=== PATIENT | male | born 1950 | race Caucasian/White ===

== ENCOUNTER 2016-07-13 12:00 | Inpatient (IN) | payer BC ==
--- NOTE | ~2016-07-13 | HP ---
History And Physical [id number] [place]. [address] NAME: LEIDY HARDY : 54 STATUS : ADM IN [facility]#: [id number] AGE: 66 ADM/REG DATE : 07/13/16 MR#: [id number] REPORT SERV DATE: 07/13/16 DICTATED BY: KISHA GUERRERO DATE: 07/13/16 REPORT STATUS : Draft TRANSCRIBED BY: MODL DATE: 07/13/16 DATE OF ADMISSION: 07/13/2016 HISTORY OF PRESENT ILLNESS: The patient is a 66-year-old male with a history of diabetes type 2, hyperlipidemia, and obstructive jaundice status post ERCP and cholecystectomy, who presented to the hospital as a direct transfer from primary care physician. The patient is well known to the GI service. He was evaluated by them in 01/2016, at which time, he presented with elevated bilirubin, underwent an ERCP, which noted gallstones in the gallbladder. Stones were removed and the patient subsequently had cholecystectomy. Status post procedure, the patient was unable to follow up with GI as recommended secondary to the fact that the patient spends half of his time in [place]. The patient states that status post procedure, he was doing well. However, in the past week, he started feeling weak and fatigued. He states that his symptoms were similar to his presentation in January, which resulted in cholecystectomy. Given these symptoms, the patient states he decided to come back to [place] to be examined by his primary care physician. The patient was seen by primary care physician and upon evaluation at GI office today, workup noted severely elevated ALT at 5609 and AST at 3482. Also on physical exam, the patient appeared more jaundiced compared to his presentation in January. Given this findings, GI called [facility] for direct admit. At the time of my evaluation, the patient corroborated the above story. He states that other than fatigue and weakness, he has no other complaints. He denies any chest pain, lightheadedness, dizziness, or any syncopal activity. He denies any change in stool or bowel habits. No fevers, no chills. Other than the fatigue and weakness, he has no other complaints at this time. REVIEW OF SYSTEMS: Fourteen-point review of system was performed. All systems were negative except as noted in the HPI. PAST MEDICAL HISTORY: Significant for: 1. Diabetes type 2. 2. Hyperlipidemia. PAST SURGICAL HISTORY: 1. The patient has a history of coronary artery bypass graft. 2. Cholecystectomy. SOCIAL HISTORY: The patient denies any alcohol use, illicit drug use, or tobacco use. Currently, the patient lives at home and is to his . FAMILY HISTORY: Noncontributory. ALLERGIES: NO KNOWN DRUG ALLERGIES. PHYSICAL EXAMINATION: VITAL SIGNS: 124/63 with a pulse of 55, respirations 16, O2 saturation 100% on room air. GENERAL: The patient lying in bed, in no acute distress. Appears severely jaundiced. History And Physical [address] [address] NAME: LEIDY HARDY : 54 STATUS : ADM IN [facility]#: [id number] AGE: 66 ADM/REG DATE : 07/13/16 MR#: [id number] REPORT SERV DATE: 07/13/16 DICTATED BY: KISHA GUERRERO DATE: 07/13/16 REPORT STATUS : Draft TRANSCRIBED BY: MODNan DATE: 07/13/16 HEENT: Normocephalic and atraumatic. Extraocular motors intact. Pupils round and reactive to light and accommodation. No conjunctival pallor noted. Icteric sclerae noted. NECK: Trachea midline and symmetric. No JVD noted. No thyromegaly present. No lymphadenopathy noted. CHEST: Nontender to palpation. CARDIOVASCULAR: Regular rate and rhythm. S1, S2. No murmurs, rubs, or gallops. LUNGS: Clear to auscultation bilaterally. No added breath sounds. ABDOMEN: Positive bowel sounds. Nontender. Nondistended. Flat and soft. No guarding. No rebound tenderness. EXTREMITIES: No cyanosis, no clubbing, no edema. NEUROLOGIC: Alert and oriented x3. No focal deficits appreciated. LABORATORY DATA: Labs available are those from GI office, significant for elevated AST at 3428 and ALT 5609 with T bili of 9.7, alkaline phosphatase 270, and CPK 114. IMAGING: No imaging available at this point. ASSESSMENT AND PLAN: 1. Hepatitis. Liver function test severely elevated. Given severe elevation, differentials include viral hepatitis versus ischemic hepatitis versus drug induced, specifically acetaminophen. Most workup has already been ordered by GI including vital and autoimmune serologies. However, we will add IgM, anti-hepatitis A virus, IgG, and ceruloplasmin level. 2. Diabetes type 2. We will hold all oral antihyperglycemic medications in the setting of severe hepatitis. We will place the patient on sliding scale insulin. 3. Hyperlipidemia. We will hold medications for now. Monitor coronary artery disease, status post CABG, stable. 4. Code status. The patient wishes remain full code. 5. Deep vein thrombosis prophylaxis with subacute heparin. Greater than 50 minutes was spent admitting the patient. THOMAS/DANA Kisha Guerrero MD / [id number] CC: MD Rebel Silverman M.D.
--- NOTE | ~2016-07-13 | CN ---
Consultation Report [facility] [address] [place]. [address] NAME: REGULO HARDY : 54 STATUS : ADM IN PAT#: [id number] AGE: 66 ADM/REG DATE : 07/13/16 MR#: [id number] REPORT SERV DATE: 07/13/16 DICTATED BY: LAVONNE PARKER DATE: 07/13/16 REPORT STATUS : Draft TRANSCRIBED BY: MODL DATE: 07/13/16 GI CONSULTATION DATE OF CONSULTATION: 07/13/2016 REASON FOR CONSULTATION: Evaluation and management of elevated liver enzymes. HISTORY OF PRESENT ILLNESS: Mr. Regulo Hardy is a very pleasant 66-year-old male patient, known to Dr. William Mcdonald in the outpatient setting, who presents with a history of fatigue and malaise for the last one and half weeks as well as he states change in his urine. It should be noted that, we saw him in 2015 for choledocholithiasis. At that time, he had been feeling unwell for the last couple of weeks with nausea and fatigue. He underwent an ERCP with Dr. Ramirez with removal of biliary ductal stones and has subsequently had his gallbladder removed. Upon this admission, he had been to see his primary care physician, Dr. Law. His outpatient labs revealed that he had a total bilirubin of 14.4, his alkaline phosphatase was 270, ALT was 6912, AST 4235, lipase 663, and iron level was 321 with a ferritin level of 10,557. Ammonia level normal at 16. He had checked him for hepatitis A, B, and C, hep C was negative, A was negative, his hepatitis B surface antigen was reactive, and hepatitis B surface antibody quantitative was less than 3.10. I have discussed the case with Dr. Ramirez as well as Dr. Cesar Wiggins, vehicle assembler. We will plan on obtaining multiple liver labs, specifically hepatitis B as well as obtaining an MRCP to rule out obstructive process. If negative for obstructive process, we will begin on Viread as well as supportive care with IV fluids and monitoring of his liver function testing as well as PT/INR. I have discussed this with the patient. I have instructed him on his hepatitis B positivity. All his questions were entertained. PAST MEDICAL HISTORY: Positive for type 2 diabetes, cholecystitis, choledocholithiasis, history of coronary artery disease with use of Plavix, last dose this past 07/10/2016, hyperlipidemia. FAMILY HISTORY: Noncontributory from a GI standpoint. SOCIAL HISTORY: He is . Does not smoke. He uses recreational alcohol. He denies illicit IV drugs. ALLERGIES: NO KNOWN ALLERGIES. HOME MEDICATIONS: None available at this time. He states, he takes Plavix, Zetia, Levemir, Tradjenta, metformin, Starlix, Bystolic, Crestor, Cialis, omega-3 fatty acids, Tylenol, Qsymia. REVIEW OF SYSTEMS: A 10-point review of systems has been obtained with pertinent positives being addressed in the history of present illness. Consultation Report [address] [place]. [address] NAME: REGULO HARDY : 54 STATUS : ADM IN [facility]#: [id number] AGE: 66 ADM/REG DATE : 07/13/16 MR#: [id number] REPORT SERV DATE: 07/13/16 DICTATED BY: LAVONNE PARKER DATE: 07/13/16 REPORT STATUS : Draft TRANSCRIBED BY: DANA DATE: 07/13/16 PHYSICAL EXAMINATION: VITAL SIGNS: Temperature 98.7, pulse 66, respirations 16, blood pressure 118/67. NEURO: Reveals an alert, male, resting in bed with no focal deficits. Notable for jaundice. GENERAL: He is cooperative. He is in no distress. He is awake, alert, oriented x3. HEAD, EARS, EYES, NOSE, AND THROAT: Positive for scleral icterus. Pupils are equal, round, reactive to light and accommodation. Normocephalic, atraumatic. NECK: No JVD. No palpable nodes. LUNGS: Clear anteriorly with normal respiratory effort exhibited. Equal expansion. CARDIOVASCULAR SYSTEM: Regular rate and rhythm. ABDOMEN: Soft, nontender, nondistended. Unable to palpate the liver. He has active bowel sounds in all four quadrants without rebound. He has no rebound, guarding elicited on exam. EXTREMITIES: No edema. Normal distal pulses. SKIN: Warm, dry, and intact, but was jaundiced. ASSESSMENT AND PLAN: 1. Likely acute hepatitis B. 2. History of common bile duct stones. 3. Elevated LFTs. PLAN: 1. MRCP to rule out obstructive process. 2. We will order multiple hepatitis labs, hepatitis DNA by PCR, HBeAg, HBe antibody, hepatitis B genotype, AFP, anti-smooth muscle antigen, antimitochondrial antibody, antinuclear antibody, a Tylenol level, PT/INR. We will follow these as well as trend his LFTs for worsening. We will also begin him on Viread 300 mg p.o. daily. DG/MODL [place] VERONICA Snow / [id number] CC: MD Rebel Silverman M.D.
--- NOTE | ~2016-07-13 | DS ---
Discharge Summary [address] [place]. [address] NAME: LEIDY HARDY : 54 STATUS : DIS IN PAT#: [id number] AGE: 66 ADM/REG DATE : 07/13/16 MR#: [id number] REPORT SERV DATE: 07/17/16 DICTATED BY: DATE: REPORT STATUS : Draft TRANSCRIBED BY: MODL DATE: 07/16/16 ADMISSION DATE: 07/13/2016 DISCHARGE DATE: 07/16/2016 DISCHARGE DIAGNOSES: 1. Acute hepatitis B. 2. Diabetes mellitus type 2 with a hemoglobin A1c of 11.2. 3. Hyperlipidemia. CONSULTING PHYSICIANS: Dr. Sancho Ramirez as well as Ms. Arley Snow. DISCHARGE MEDICATIONS: Include Plavix 75 mg p.o. daily, Levemir 20 units subcu at bedtime, Humalog sliding scale, Bystolic 2.5 mg p.o. daily, Nexium 40 mg p.o. daily, tenofovir 300 mg p.o. daily, Ursodiol 500 mg p.o. b.i.d., Tradjenta 5 mg p.o. daily. IMAGING: Includes MRI of the abdomen without contrast/MRCP, impression, prior cholecystectomy, biliary system is nonobstructive, no intraluminal defects within the pancreatic or biliary ductal cyst noted, 2 small cysts in the kidneys bilaterally, benign appearing, intrahepatic and extrahepatic ductal cyst which are nondilated, common bile duct measured about 3 mm, pancreas, ductal cyst were not dilated, liver and spleen were normal in size. HOSPITAL COURSE/PROBLEM LIST: 1. Acute hepatitis B, GI Medicine has followed along during the patient's hospital course. The patient's liver enzymes have steadily improved, however, still elevated. Initially the patient's ALT was 6173, today it is 4138. Initially his AST was 3715, today it is 1287. His hepatitis B IgM antibody was reactive. He has been treated for acute hepatitis B infection with Viread as well as Ursodiol which we will continue upon discharge. The patient's total bilirubin is down to 11.9 today. Eyes jaundice and scleral icterus have improved over the last several days. He will follow up with Dr. Cesar Wiggins, kitchen operator. He will make an appointment with the patient post discharge. I spoke with Ms. Arley Segun-Terrie about this and he will see Dr. Wiggins in one to two weeks. An etiology for his acute hepatitis B was not found. The patient denies any tattoos or piercings or IV drug use or sexual interactions. 2. Diabetes mellitus type 2 with a hemoglobin A1c of 11.2, rn diabetes educator was consulted who saw the patient. He reports that his average blood glucose was 100 to 150 at home. He checks it once a day in the morning. Again his hemoglobin A1c was 11.2, due to acute illness and stopping some of his oral antidiabetic agents due to acute hepatitis, I will place the patient on a sliding scale Humalog. He will need to follow up with his primary care provider, Dr. Rebel Law for further monitoring and management of his diabetes. 3. Hyperlipidemia. At this time, we will hold his statin due to his acute hepatitis. Follow up with his primary care provider for further monitoring and management of this. The patient is hemodynamically stable with a blood pressure of 129/69, heart rate is 50, respirations 18, O2 saturation 97% on room air, temp is 97.7. Discharge Summary [address] [address] NAME: LEIDY HARDY : 54 STATUS : DIS IN PAT#: [id number] AGE: 66 ADM/REG DATE : 07/13/16 MR#: [id number] REPORT SERV DATE: 07/17/16 DICTATED BY: DATE: REPORT STATUS : Draft TRANSCRIBED BY: YEIMIL DATE: 07/16/16 This discharge took greater than 30 minutes with the patient education, medication reconciliation, and followup care. FUNMI/DANA Calvin Rodrigues NP / [id number] CC: MD Rebel Hood M.D. Chirag Patel, M.D.
[~2016-07-13 12:00] MED LIST: ACET500CAP PO; BYSTOLIC2.5 MG PO; CIALIS5 MG PO; CIP5 PO; CRESTOR40 MG PO; FLAG500TAB PO; FLAGIV500 PO; GLUCOPHAGE1000 MG PO; LEVAQUIN750 MG PO; LEVEMIR SC; NEXIUM40 PO; OMEGA 3 OTC PO; OMEGA-3 KRILL; PCET PO; PHENTERMINE; PLAVIX PO; PR25 PO; QSYMIA PO; STARLIX120 PO; TOPIRAMATE; TRADJENTA5 MG PO; ZETIA PO
[2016-07-13 18:20] LABS: BASOPHILS ABSOLUTE 0.07 10/3/uL (0.0-0.16); EOSINOPHILS 1.1 %; EOSINOPHILS ABSOLUTE 0.08 10/3/uL (0.0-0.53); HEMATOCRIT 45.6 % (40.0-51.0); HEMOGLOBIN 15.6 g/dL (13.6-17.8); IMMATURE GRANULOCYTES 0.1 %; IMMATURE GRANULOCYTES ABSOLUTE 0.01 10/3/uL (0.0-0.11); LYMPHOCYTES 33.6 %; LYMPHOCYTES ABSOLUTE 2.42 10/3/uL (0.67-4.30); MEAN CORPUS HGB CONC 34.2 g/dL (32.0-36.0); MEAN CORPUSCULAR HEMOGLOB 30.8 pg (26.0-34.0); MEAN CORPUSCULAR VOLUME 90.1 fL (80-100); MEAN PLATELET VOLUME 10.6 fL (9.2-13.0); MONOCYTES ABSOLUTE 1.08 10/3/uL (0.21-1.20); NEUTROPHILS 49.2 %; NEUTROPHILS ABSOLUTE 3.55 10/3/uL (2.02-8.40); PLATELET COUNT 243 10/3/uL (150-400); RBC DISTRIBUTION WIDTH 15.6 % (12.0-16.0); RED CELL COUNT 5.06 10/6/uL (4.7-6.1); WHITE BLOOD CELLS 7.2 10/3/uL (4.5-10.5)
[2016-07-13 18:21] LABS: MANUAL DIFF NO %
[2016-07-13 18:29] LABS: INTERNATIONAL NORMAL RATI 1.2 UNITS (-); PROTIME (NOT ORD) 15.3 SEC (12.0-14.5)
[2016-07-13 18:53] LABS: A/G RATIO 0.7 (0.7-1.9); ALBUMIN 2.9 G/DL (3.5-5.0); ALPHA FETOPROTEIN (TUMOR) 3.6 NG/ML (< 8.0); CALCIUM, SERUM 9.5 MG/DL (8.5-10.4); CHLORIDE, SERUM 108 MMOL/L (96-112); CO2 (CARBON DIOXIDE) 28 MMOL/L (24-34); FERRITIN 8745 NG/ML (26-388); FREE T4 1.29 NG/DL (0.76-1.46); GFR AFRICAN AMERICAN 82 ML/MIN (>=60); GFR NON AFRICAN AMERICAN 71 ML/MIN (>=60); GLUCOSE, SERUM 108 MG/DL (60-99); HDL CHOLESTEROL 7 MG/DL (> 39); IMMUNOGLOBULIN G 1110 MG/DL (673-1464); IRON BINDING CAPACITY 355 MCG/DL (250-450); POTASSIUM, SERUM 4.7 MMOL/L (3.5-5.3); SGPT(ALT) 6173 U/L (5-65); SODIUM, SERUM 142 MMOL/L (135-148); TOTAL PROTEIN 6.9 G/DL (6.0-8.5)
[2016-07-13 18:57] LABS: ACETAMINOPHEN LEVEL (TYLENOL) < 2.0 MCG/ML (10.0-20.0); ALKALINE PHOSPHATASE 220 U/L (45-117); BUN (BLOOD UREA NITROGEN) 11 MG/DL (6-23); SGOT(AST) 3715 U/L (5-40); TOTAL BILIRUBIN 13.8 MG/DL (0-1.2)
[2016-07-13 18:58] LABS: CHOL/HDL RATIO(NOT ORDER) 15.4 (0-5); CHOLESTEROL 108 MG/DL (< 200); IRON, SERUM 199 MCG/DL (35-150); LDL CHOLESTEROL 49 MG/DL (< 130); NON-HDL CHOLESTEROL 101 MG/DL (< 160); TRIGLYCERIDE 260 MG/DL (< 150)
[2016-07-14] MEDS ORDERED: QSYMIA 7.5 MG-1 EACH PO ×2 (06:22→06:23)
[2016-07-14 07:16] LABS: INTERNATIONAL NORMAL RATI 1.3 UNITS (-); PROTIME (NOT ORD) 15.8 SEC (12.0-14.5)
[2016-07-14 07:24] LABS: BASOPHILS 1.1 %; BASOPHILS ABSOLUTE 0.07 10/3/uL (0.0-0.16); EOSINOPHILS 1.9 %; EOSINOPHILS ABSOLUTE 0.12 10/3/uL (0.0-0.53); HEMATOCRIT 45.1 % (40.0-51.0); HEMOGLOBIN 15.8 g/dL (13.6-17.8); IMMATURE GRANULOCYTES 0.2 %; IMMATURE GRANULOCYTES ABSOLUTE 0.01 10/3/uL (0.0-0.11); LYMPHOCYTES ABSOLUTE 1.99 10/3/uL (0.67-4.30); MEAN CORPUSCULAR HEMOGLOB 31.5 pg (26.0-34.0); MEAN CORPUSCULAR VOLUME 89.8 fL (80-100); MEAN PLATELET VOLUME 10.6 fL (9.2-13.0); MONOCYTES ABSOLUTE 0.93 10/3/uL (0.21-1.20); NEUTROPHILS 49.8 %; NEUTROPHILS ABSOLUTE 3.09 10/3/uL (2.02-8.40); PLATELET COUNT 201 10/3/uL (150-400); RBC DISTRIBUTION WIDTH 15.6 % (12.0-16.0); RED CELL COUNT 5.02 10/6/uL (4.7-6.1); WHITE BLOOD CELLS 6.2 10/3/uL (4.5-10.5)
[2016-07-14 07:29] LABS: MANUAL DIFF NO %
[2016-07-14 07:37] LABS: A/G RATIO 0.6 (0.7-1.9); ALBUMIN 2.3 G/DL (3.5-5.0); ALKALINE PHOSPHATASE 204 U/L (45-117); BUN (BLOOD UREA NITROGEN) 9 MG/DL (6-23); CALCIUM, SERUM 8.9 MG/DL (8.5-10.4); CHLORIDE, SERUM 109 MMOL/L (96-112); CO2 (CARBON DIOXIDE) 18 MMOL/L (24-34); DIRECT BILIRUBIN 9.5 MG/DL (0.0-0.4); GFR AFRICAN AMERICAN 104 ML/MIN (>=60); GFR NON AFRICAN AMERICAN 90 ML/MIN (>=60); GLOBULIN 3.6 G/DL (2.5-4.1); GLUCOSE, SERUM 139 MG/DL (60-99); INDIRECT BILIRUBIN(NOT ORDER) 4.1 MG/DL (0.1-0.9); POTASSIUM, SERUM 4.4 MMOL/L (3.5-5.3); SGPT(ALT) 5186 U/L (5-65); SODIUM, SERUM 137 MMOL/L (135-148); TOTAL BILIRUBIN 13.6 MG/DL (0-1.2); TOTAL PROTEIN 5.9 G/DL (6.0-8.5)
[2016-07-14 07:38] LABS: SGOT(AST) 3045 U/L (5-40)
[2016-07-14 11:13] LABS: HIV COMBO NON-REACTIVE (NON REAC)
[2016-07-14 11:14] LABS: HEP A ANTIBODY IGM NON-REACTIVE (NON-REACT)
[2016-07-14 17:32] LABS: ALBUMIN 2.6 G/DL (3.5-5.0); DIRECT BILIRUBIN 10.4 MG/DL (0.0-0.4); INDIRECT BILIRUBIN(NOT ORDER) 4.1 MG/DL (0.1-0.9); TOTAL BILIRUBIN 14.5 MG/DL (0-1.2); TOTAL PROTEIN 5.9 G/DL (6.0-8.5)
[2016-07-15 05:38] LABS: BASOPHILS 0.9 %; BASOPHILS ABSOLUTE 0.07 10/3/uL (0.0-0.16); EOSINOPHILS 1.3 %; HEMATOCRIT 43.2 % (40.0-51.0); HEMOGLOBIN 15.3 g/dL (13.6-17.8); IMMATURE GRANULOCYTES 0.3 %; IMMATURE GRANULOCYTES ABSOLUTE 0.02 10/3/uL (0.0-0.11); LYMPHOCYTES ABSOLUTE 2.35 10/3/uL (0.67-4.30); MEAN CORPUS HGB CONC 35.4 g/dL (32.0-36.0); MEAN CORPUSCULAR HEMOGLOB 31.2 pg (26.0-34.0); MONOCYTES 13.3 %; MONOCYTES ABSOLUTE 1.04 10/3/uL (0.21-1.20); NEUTROPHILS 54.2 %; NEUTROPHILS ABSOLUTE 4.25 10/3/uL (2.02-8.40); PLATELET COUNT 231 10/3/uL (150-400); RBC DISTRIBUTION WIDTH 15.7 % (12.0-16.0); RED CELL COUNT 4.91 10/6/uL (4.7-6.1); WHITE BLOOD CELLS 7.8 10/3/uL (4.5-10.5)
[2016-07-15 05:41] LABS: MANUAL DIFF NO %
[2016-07-15 06:09] LABS: ALBUMIN 2.7 G/DL (3.5-5.0); ALKALINE PHOSPHATASE 204 U/L (45-117); BUN (BLOOD UREA NITROGEN) 10 MG/DL (6-23); CALCIUM, SERUM 9.6 MG/DL (8.5-10.4); CHLORIDE, SERUM 106 MMOL/L (96-112); CREATININE 1.06 MG/DL (0.70-1.30); GFR AFRICAN AMERICAN 86 ML/MIN (>=60); GFR NON AFRICAN AMERICAN 74 ML/MIN (>=60); POTASSIUM, SERUM 4.8 MMOL/L (3.5-5.3); SGPT(ALT) 5143 U/L (5-65); SODIUM, SERUM 139 MMOL/L (135-148); TOTAL PROTEIN 6.3 G/DL (6.0-8.5)
[2016-07-15 06:11] LABS: CO2 (CARBON DIOXIDE) 26 MMOL/L (24-34); GLUCOSE, SERUM 217 MG/DL (60-99); INDIRECT BILIRUBIN(NOT ORDER) 3.6 MG/DL (0.1-0.9); SGOT(AST) 2764 U/L (5-40); TOTAL BILIRUBIN 14.6 MG/DL (0-1.2)
[2016-07-15 10:25] LABS: INTERNATIONAL NORMAL RATI 1.2 UNITS (-); PROTIME (NOT ORD) 15.3 SEC (12.0-14.5)
[2016-07-15 18:25] LABS: HEPATITIS B CORE AB TOTAL Reactive (NR)
[2016-07-15 23:26] LABS: HBE AB Non Reactive (NR)
[2016-07-16 06:23] LABS: INTERNATIONAL NORMAL RATI 1.2 UNITS (-); PROTIME (NOT ORD) 14.9 SEC (12.0-14.5)
[2016-07-16 06:25] LABS: BASOPHILS 0.2 %; BASOPHILS ABSOLUTE 0.02 10/3/uL (0.0-0.16); EOSINOPHILS 0 %; HEMATOCRIT 44.2 % (40.0-51.0); HEMOGLOBIN 15.6 g/dL (13.6-17.8); IMMATURE GRANULOCYTES 0.2 %; IMMATURE GRANULOCYTES ABSOLUTE 0.02 10/3/uL (0.0-0.11); LYMPHOCYTES 17.9 %; LYMPHOCYTES ABSOLUTE 2.28 10/3/uL (0.67-4.30); MEAN CORPUS HGB CONC 35.3 g/dL (32.0-36.0); MEAN CORPUSCULAR VOLUME 87.7 fL (80-100); MEAN PLATELET VOLUME 10.6 fL (9.2-13.0); MONOCYTES 7.7 %; MONOCYTES ABSOLUTE 0.98 10/3/uL (0.21-1.20); NEUTROPHILS ABSOLUTE 9.44 10/3/uL (2.02-8.40); PLATELET COUNT 272 10/3/uL (150-400); RBC DISTRIBUTION WIDTH 15.6 % (12.0-16.0); RED CELL COUNT 5.04 10/6/uL (4.7-6.1)
[2016-07-16 06:28] LABS: MANUAL DIFF NO %; WHITE BLOOD CELLS 12.7 10/3/uL (4.5-10.5)
[2016-07-16 06:48] LABS: ALBUMIN 2.8 G/DL (3.5-5.0); ALKALINE PHOSPHATASE 206 U/L (45-117); BUN (BLOOD UREA NITROGEN) 11 MG/DL (6-23); CALCIUM, SERUM 9.1 MG/DL (8.5-10.4); CHLORIDE, SERUM 105 MMOL/L (96-112); CO2 (CARBON DIOXIDE) 22 MMOL/L (24-34); CREATININE 0.86 MG/DL (0.70-1.30); GFR AFRICAN AMERICAN 106 ML/MIN (>=60); GFR NON AFRICAN AMERICAN 92 ML/MIN (>=60); GLUCOSE, SERUM 209 MG/DL (60-99); POTASSIUM, SERUM 3.9 MMOL/L (3.5-5.3); SGPT(ALT) 4138 U/L (5-65); SODIUM, SERUM 137 MMOL/L (135-148); TOTAL PROTEIN 6.7 G/DL (6.0-8.5)
[2016-07-16 06:50] LABS: DIRECT BILIRUBIN 9.1 MG/DL (0.0-0.4); INDIRECT BILIRUBIN(NOT ORDER) 2.8 MG/DL (0.1-0.9); SGOT(AST) 1287 U/L (5-40); TOTAL BILIRUBIN 11.9 MG/DL (0-1.2)
[2016-07-16] MEDS ORDERED: HUMAMIXPEN SC (10:40)
[2016-07-16] MEDS ORDERED: VIREAD 300 MG300 MG PO (10:41)
[2016-07-16] MEDS ORDERED: URSO FORTE500 MG PO (10:42)
[2016-07-16 13:36] LABS: HBV DNA QUANT LOG10 VALUE 5.6 (NOTDET); HBV DNA QUANT RESULT 410281 IU/mL (NOTDET)
[2016-07-16 15:01] LABS: MITOCHONDRIAL ANTIBODY Negative (NEG)
[2016-07-18 00:10] LABS: HBE AG Reactive (NR)
[2016-07-18 18:11] LABS: HBV RT POLYMERASE MUTATIONS Not Detected (()); HBV SURFACE ANTIGEN MUTATIONS Not Detected (())
== END 2016-07-16 12:03 | disposition home or self-care (01) | DRG 441 ==
LOC: 5SO 12:00
PROVIDERS: Hospitalist; Nurse Practitioner Family
DX: B16.9 Acute hepatitis B without delta-agent and without hepatic coma (principal); K83.1 Obstruction of bile duct; E11.9 Type 2 diabetes mellitus without complications; E78.5 Hyperlipidemia, unspecified; I25.10 Atherosclerotic heart disease of native coronary artery without angina pectoris; Z90.49 Acquired absence of other specified parts of digestive tract; Z98.890 Other specified postprocedural states; Z95.1 Presence of aortocoronary bypass graft; Z79.02 Long term (current) use of antithrombotics/antiplatelets; Z79.899 Other long term (current) drug therapy; Z79.84 Long term (current) use of oral hypoglycemic drugs
CPT/HCPCS: 74181; 80048; 80053; 80061; 80076; 82105; 82150; 82390; 82728; 82784; 82962; 83036; 83540; 83550; 83605; 83690; 84145; 84439; 84443; 85025; 85610; 86255; 86704; 86705; 86707; 86709; 87350; 87389; 87517; 87912; A9270-GY; G0480; J2920